=== PATIENT | female | born 1975 | race Caucasian/White ===

== ENCOUNTER → 2018-07-04 16:42 | Outpatient (CLI) | payer SELFPAY ==
[2018-07-04 18:31] LABS: Pregnancy, Serum, hCG Quali. NEGATIVE Negative (0-9 Nonpreg)
== END ==
PROVIDERS: Visit Provider Obstetrics & Gynecology
DX: N91.2 Amenorrhea, unspecified (principal)
CPT/HCPCS: 36415; 84703

== ENCOUNTER → 2018-09-29 14:33 | Outpatient (CLI) | payer SELFPAY ==
[2018-09-29 16:27] LABS: hCG Titer Quant., Serum < 1 mIU/mL (<9 non-preg)
== END ==
PROVIDERS: Visit Provider Obstetrics & Gynecology
DX: N92.6 Irregular menstruation, unspecified (principal)
CPT/HCPCS: 36415; 84702

== ENCOUNTER → 2019-08-08 15:30 | Outpatient (CLI) | payer SELFPAY ==
[2019-08-14 20:58] LABS: HPV Reflexed? NOT INDICATED
== END ==
PROVIDERS: Visit Provider Obstetrics & Gynecology
DX: Z12.4 Encounter for screening for malignant neoplasm of cervix (principal)
CPT/HCPCS: 88175; G0145